=== PATIENT | female | born 1965 | race Caucasian/White ===

== ENCOUNTER 2017-11-23 13:16 | Inpatient (IN) | payer MEDICAID ==
[~2017-11-23] VITALS: Ht 165.1 cm; Wt 82.5 kg
[~2017-11-23 13:16] MED LIST: ASPI-496 PO; ASPI-624; BUDE10.2 INH; CALC200T3 PO; CEFD300C37 PO; DILT180C53 PO; DOXY100T PO; ESOM20CA PO; FERR325T18 PO; FLUT1DIS3 INH; FURO-93 PO; HYDR1TAB12 PO; IPRA3AMP INH; LASIX PO; LEVO500T47 PO; LISI5TAB7 PO; LORA1TAB PO; MAGNESIUM PO; METH-356 PO; METH4TAB2 PO; METHADONE PO; METO25TA35 PO; NYST1000 PO; OMEP20TA62 PO; POTA20TA14 PO; POTASSIUM PO; PRED10TA PO; PRED10TA14 PO; SERT50TA PO; TIOT18CA INH
[2017-11-23] MEDS ORDERED: SODIUM CHLORIDE FLUSH 10ML SYR IVF ONE (13:30)
[2017-11-23] MEDS ORDERED: ALBUTEROL/IPRATROPIUM 2.5MG/0.5MG, 3 ML ONE ×2 (13:53→14:02)
[2017-11-23 14:00] LABS: MEAN CORPUSCULAR HEMOGLOBIN 26.6 pg (27.0-34.8); MEAN CORPUSCULAR HGB CONC 32.3 g/dL (32.4-35.8); MEAN CORPUSCULAR VOLUME 82.4 fL (80-100); MEAN PLATELET VOLUME 7.4 fL (7.4-10.4); PLATELET COUNT 276 x10^3/uL (130-400); RED BLOOD COUNT 4.47 x10^6/uL (3.82-5.3); RED CELL DISTRIBUTION WIDTH 15.9 % (9.6-15.2)
[2017-11-23] MEDS: ALBUTEROL/IPRATROPIUM 2.5MG/0.5MG, 3 ML NPPB SCH ×3 (14:00→22:31)
[2017-11-23] MEDS ORDERED: SODIUM CHLORIDE 0.9% 1,000ML IVBOLUS ONE (14:00)
[2017-11-23] MEDS ORDERED: methylPREDNISolone SOD SUCC 125 MG/2 ML IVP ONE (14:00)
[2017-11-23 14:13] LABS: ALBUMIN 3.3 g/dL (3.4-5.0); ANION GAP 11 mmol/L (5-15); CHLORIDE 97 mmol/L (98-107)
[2017-11-23 14:19] LABS: ALANINE AMINOTRANSFERASE 32 U/L (12-78); ALKALINE PHOSPHATASE 86 U/L (45-117); BILIRUBIN,TOTAL 0.8 mg/dL (0.2-1.0); CREATININE 0.84 mg/dL (0.55-1.02); TOTAL PROTEIN 7.2 g/dL (6.4-8.2); TROPONIN I 0.053 ng/mL (0.000-0.045)
[2017-11-23] MEDS ORDERED: CEFTRIAXONE PMX 1GM/50ML 50 ML IV ONE (14:30)
[2017-11-23] MEDS ORDERED: AZITHROMYCIN 500 MG in SODIUM CHLORIDE 0.9% 250 ML IV ONE (14:30)
[2017-11-23 15:00] LABS: MD YES
[2017-11-23 15:01] LABS: BAND#(MANUAL) 0.68 x10^3/uL; BANDS%(MANUAL) 5 % (0-7); MONOS#(MANUAL) 0.27 x10^3/uL (0.3-2.7); MONOS% (MANUAL) 2 % (2-9)
[2017-11-23 15:02] LABS: LYMPH#(MANUAL) 0.14 x10^3/uL (1-3.4); LYMPHS% (MANUAL) 1 % (22-44); SEGS% (MANUAL) 92 % (42-75)
[2017-11-23 15:03] LABS: <PLATELET ESTIMATE> ADEQUATE; <PLT MORPHOLOGY> NORMAL PLT MORPH; ANISOCYTOSIS 1+; MICROCYTOSIS 1+
[2017-11-23 15:04] LABS: HYPOCHROMIA 1+; POLYCHROMASIA 1+
[2017-11-23] MEDS ORDERED: METHADONE PO (15:05)
[2017-11-23] MEDS ORDERED: LABETALOL 5MG/ML, 20ML IVPush PRN (15:30)
[2017-11-23] MEDS ORDERED: POLYETHYLENE GLYCOL 17 GM PACKET PO PRN (15:30)
[2017-11-23] MEDS ORDERED: hydrALAzine 20 MG/ML, 1ML IVPush PRN (15:30)
[2017-11-23] MEDS ORDERED: GUAIFENESIN/DM 200-20MG, 10ML UDC PO PRN (15:30)
[2017-11-23] MEDS ORDERED: CEFTRIAXONE PMX 1GM/50ML 50 ML ONE (15:34)
[2017-11-23] MEDS ORDERED: methylPREDNISolone SOD SUCC 125 MG/2 ML ONE (15:35)
[2017-11-23] MEDS ORDERED: OMNIPAQUE 350 MG/ML, 100ML BOTTLE ONE (16:45)
[2017-11-23] MEDS: AZITHROMYCIN 500 MG in SODIUM CHLORIDE 0.9% 250 ML IV SCH ×2 (17:20→23:39)
[2017-11-23 17:29] VITALS: BP 118/69
[2017-11-23 17:33] VITALS: BP 118/69
[2017-11-23] MEDS ORDERED: CEFTRIAXONE PMX 1GM/50ML 50 ML IV SCH (18:00)
[2017-11-23 18:53] LABS: MICROSCOPIC NOT IND
[2017-11-23 18:55] LABS: CULTURE INDICATED? NO
[2017-11-23 20:07] LABS: HCT (SEDRATE) 36.8 % (34.6-47.8)
[2017-11-23 20:16] VITALS: BP 123/81
[2017-11-23 21:21] LABS: TROPONIN I 0.048 ng/mL (0.000-0.045)
[2017-11-23] MEDS: SODIUM CHLORIDE 0.9% 1,000 ML IV SCH (21:53)
[2017-11-23] MEDS: ENOXAPARIN 40 MG/0.4 ML SQ SCH (21:54)
[2017-11-23] MEDS: methylPREDNISolone SOD SUCC 125 MG/2 ML IVPush SCH (21:54)
[2017-11-24 01:05] LABS: RAPID INFLUENZA A Negative (Negative); RAPID INFLUENZA B Negative (Negative)
[2017-11-24 02:04] VITALS: BP 132/73
[2017-11-24] MEDS: methylPREDNISolone SOD SUCC 125 MG/2 ML IVPush SCH ×2 (05:58→20:32)
[2017-11-24 06:38] LABS: BASOPHILS # (AUTO) 0.06 x10^3/uL (0-0.1); BASOPHILS % (AUTO) 2 % (0-1); EOSINOPHILS % (AUTO) 0 % (1-7); LYMPHOCYTES # (AUTO) 0.31 x10^3/uL (1-3.4); LYMPHOCYTES % (AUTO) 7 % (22-44); MD NO; MEAN CORPUSCULAR HEMOGLOBIN 26.9 pg (27.0-34.8); MEAN CORPUSCULAR HGB CONC 32.7 g/dL (32.4-35.8); MEAN CORPUSCULAR VOLUME 82.3 fL (80-100); MONOCYTES # (AUTO) 0.19 x10^3/uL (0.2-0.8); MONOCYTES % (AUTO) 4 % (2-9); NEUTROPHILS # (AUTO) 3.64 x10^3/uL (1.8-6.8); NEUTROPHILS % (AUTO) 87 % (42-75); PLATELET COUNT 179 x10^3/uL (130-400); RED BLOOD COUNT 3.44 x10^6/uL (3.82-5.3)
[2017-11-24] MEDS: ALBUTEROL/IPRATROPIUM 2.5MG/0.5MG, 3 ML NPPB SCH ×5 (07:00→22:00)
[2017-11-24 07:48] LABS: ANION GAP 9 mmol/L (5-15); CALCIUM 8.2 mg/dL (8.5-10.1); CHLORIDE 103 mmol/L (98-107)
[2017-11-24 07:50] LABS: CREATININE 0.49 mg/dL (0.55-1.02)
[2017-11-24 08:36] VITALS: BP 144/95
[2017-11-24] MEDS: SENNA/DOCUSATE TABLET PO SCH (09:24)
[2017-11-24] MEDS: DILTIAZEM CD 180 MG CAP.ER.24H PO SCH (09:24)
[2017-11-24] MEDS: METHADONE 10 MG TABLET PO SCH (09:25)
[2017-11-24] MEDS: ASPIRIN 81 MG TABLET EC PO SCH (09:25)
[2017-11-24 09:41] LABS: RED BLOOD COUNT 3.41 x10^6/uL (3.82-5.3)
[2017-11-24 09:43] LABS: ABSOLUTE RETICS # 0.117 x10^6/uL (0.5-2.5); RETICULOCYTE COUNT % 3.41 % (0.5-1.5)
[2017-11-24] MEDS ORDERED: TRAZ100T15 PO (11:36)
[2017-11-24] MEDS ORDERED: VENL225T PO (11:36)
[2017-11-24] MEDS ORDERED: ESOM40CA PO (11:36)
[2017-11-24] MEDS ORDERED: BUSP30TA PO (11:36)
[2017-11-24] MEDS: SODIUM CHLORIDE 0.9% 1,000 ML IV SCH ×2 (11:51→20:27)
[2017-11-24 14:46] VITALS: BP 162/100
[2017-11-24] MEDS: BUSPIRONE 10 MG TABLET PO SCH (15:15)
[2017-11-24] MEDS: VENLAFAXINE 75 MG CAP ER PO SCH (16:30)
[2017-11-24] MEDS: LORazepam 1MG TABLET PO SCH ×2 (16:38→20:27)
[2017-11-24] MEDS: ENOXAPARIN 40 MG/0.4 ML SQ SCH (20:26)
[2017-11-24] MEDS: TRAZODONE 100MG TABLET PO SCH (20:27)
[2017-11-24 20:34] VITALS: BP 120/64
[2017-11-24] MEDS ORDERED: BUSPIRONE 10 MG TABLET PO SCH (21:00)
[2017-11-24] MEDS: FLUTICASONE/VILANTEROL 200-25MCG/INH INH SCH (21:31)
[2017-11-24] MEDS: CEFTRIAXONE 1,000 MG in SODIUM CHLORIDE 0.9% 50 ML IV SCH (21:31)
[2017-11-24] MEDS: AZITHROMYCIN 500 MG in SODIUM CHLORIDE 0.9% 250 ML IV SCH (23:22)
[2017-11-25 02:07] VITALS: BP 119/75
[2017-11-25] MEDS: methylPREDNISolone SOD SUCC 125 MG/2 ML IVPush SCH ×3 (05:07→20:38)
[2017-11-25 05:27] LABS: BASOPHILS % (AUTO) 0 % (0-1); EOSINOPHILS % (AUTO) 0 % (1-7); LYMPHOCYTES # (AUTO) 0.22 x10^3/uL (1-3.4); LYMPHOCYTES % (AUTO) 6 % (22-44); MD NO; MEAN CORPUSCULAR HEMOGLOBIN 26.7 pg (27.0-34.8); MEAN CORPUSCULAR HGB CONC 32.1 g/dL (32.4-35.8); MEAN CORPUSCULAR VOLUME 83.1 fL (80-100); MEAN PLATELET VOLUME 7.9 fL (7.4-10.4); MONOCYTES # (AUTO) 0.12 x10^3/uL (0.2-0.8); MONOCYTES % (AUTO) 3 % (2-9); NEUTROPHILS # (AUTO) 3.46 x10^3/uL (1.8-6.8); NEUTROPHILS % (AUTO) 91 % (42-75); PLATELET COUNT 199 x10^3/uL (130-400); RED BLOOD COUNT 3.67 x10^6/uL (3.82-5.3); RED CELL DISTRIBUTION WIDTH 16.6 % (9.6-15.2)
[2017-11-25 05:37] LABS: ALBUMIN 2.5 g/dL (3.4-5.0); ANION GAP 9 mmol/L (5-15); CALCIUM 7.9 mg/dL (8.5-10.1); CHLORIDE 107 mmol/L (98-107); CREATININE 0.66 mg/dL (0.55-1.02)
[2017-11-25] MEDS ORDERED: PANTOPROZOLE 40MG TABLET PO SCH (07:30)
[2017-11-25] MEDS: ALBUTEROL/IPRATROPIUM 2.5MG/0.5MG, 3 ML NPPB SCH ×5 (08:23→21:52)
[2017-11-25] MEDS: FLUTICASONE/VILANTEROL 200-25MCG/INH INH SCH (08:45)
[2017-11-25] MEDS: METHADONE 10 MG TABLET PO SCH (08:46)
[2017-11-25] MEDS: VENLAFAXINE 75 MG CAP ER PO SCH (08:46)
[2017-11-25] MEDS: DILTIAZEM CD 180 MG CAP.ER.24H PO SCH (08:46)
[2017-11-25] MEDS: BUSPIRONE 10 MG TABLET PO SCH ×2 (08:46→20:38)
[2017-11-25] MEDS: SENNA/DOCUSATE TABLET PO SCH (08:46)
[2017-11-25] MEDS: FUROSEMIDE 20 MG TABLET PO SCH (08:47)
[2017-11-25] MEDS: ASPIRIN 81 MG TABLET EC PO SCH (08:47)
[2017-11-25] MEDS: POTASSIUM CHLORIDE 20 MEQ TAB.ER.PRT PO SCH (08:47)
[2017-11-25] MEDS ORDERED: VENLAFAXINE 75 MG CAP ER PO SCH (09:00)
[2017-11-25 13:06] VITALS: BP 145/84
[2017-11-25] MEDS: SODIUM CHLORIDE 0.9% 1,000 ML IV SCH (15:39)
[2017-11-25] MEDS: PANTOPROZOLE 40MG TABLET PO SCH (17:08)
[2017-11-25] MEDS ORDERED: LORazepam 1MG TABLET PO PRN (18:30)
[2017-11-25 20:12] VITALS: BP 150/87
[2017-11-25] MEDS: TRAZODONE 100MG TABLET PO SCH (20:38)
[2017-11-25] MEDS: ENOXAPARIN 40 MG/0.4 ML SQ SCH (20:38)
[2017-11-25] MEDS: CEFTRIAXONE 1,000 MG in SODIUM CHLORIDE 0.9% 50 ML IV SCH (22:00)
[2017-11-25] MEDS: AZITHROMYCIN 500 MG in SODIUM CHLORIDE 0.9% 250 ML IV SCH (23:06)
[2017-11-26 04:22] VITALS: BP 166/96
[2017-11-26] MEDS: methylPREDNISolone SOD SUCC 125 MG/2 ML IVPush SCH (04:33)
[2017-11-26] MEDS: ALBUTEROL/IPRATROPIUM 2.5MG/0.5MG, 3 ML NPPB SCH (06:55)
[2017-11-26 08:15] VITALS: BP 187/106
[2017-11-26] MEDS: FLUTICASONE/VILANTEROL 200-25MCG/INH INH SCH (09:27)
[2017-11-26] MEDS: VENLAFAXINE 75 MG CAP ER PO SCH (09:28)
[2017-11-26] MEDS: BUSPIRONE 10 MG TABLET PO SCH (09:28)
[2017-11-26] MEDS: DILTIAZEM CD 180 MG CAP.ER.24H PO SCH (09:29)
[2017-11-26] MEDS: METHADONE 10 MG TABLET PO SCH (09:29)
[2017-11-26] MEDS: POTASSIUM CHLORIDE 20 MEQ TAB.ER.PRT PO SCH (09:29)
[2017-11-26] MEDS: SENNA/DOCUSATE TABLET PO SCH (09:30)
[2017-11-26] MEDS: FUROSEMIDE 20 MG TABLET PO SCH (09:30)
[2017-11-26] MEDS: PANTOPROZOLE 40MG TABLET PO SCH (09:42)
[2017-11-26] MEDS: ASPIRIN 81 MG TABLET EC PO SCH (09:47)
[2017-11-26] MEDS ORDERED: FLUT1BLS INH (10:43)
[2017-11-26] MEDS ORDERED: METH4TAB2 PO (10:43)
[2017-11-26] MEDS ORDERED: DOXY100C26 PO (10:43)
== END 2017-11-26 12:03 | disposition home or self-care (01) | DRG 193 ==
LOC: ED 14:37 → EDIP 14:38 → INTOOBSV 14:38 → ED 15:00 → 4WST 16:41 → OBSVTOIN 11-24 09:11
PROVIDERS: ADMIT Hospitalist; ATTEND Hospitalist
PROC: 02HV33Z Insertion of Infusion Device into Superior Vena Cava, Percutaneous Approach (ICD-10-PCS; principal; 2017-11-24)
PROC: B548ZZA Ultrasonography of Superior Vena Cava, Guidance (ICD-10-PCS; 2017-11-24)
DX: J18.9 Pneumonia, unspecified organism (principal); J96.21 Acute and chronic respiratory failure with hypoxia; I24.8 Other forms of acute ischemic heart disease; I13.0 Hypertensive heart and chronic kidney disease with heart failure and stage 1 through stage 4 chronic kidney disease, or unspecified chronic kidney disease; I50.9 Heart failure, unspecified; F11.20 Opioid dependence, uncomplicated; I48.0 Paroxysmal atrial fibrillation; J44.0 Chronic obstructive pulmonary disease with (acute) lower respiratory infection; J44.1 Chronic obstructive pulmonary disease with (acute) exacerbation; D50.9 Iron deficiency anemia, unspecified; Z99.81 Dependence on supplemental oxygen; D86.9 Sarcoidosis, unspecified; D63.8 Anemia in other chronic diseases classified elsewhere; F41.9 Anxiety disorder, unspecified; G47.00 Insomnia, unspecified; N18.9 Chronic kidney disease, unspecified; R32 Unspecified urinary incontinence; Z23 Encounter for immunization; Z87.891 Personal history of nicotine dependence; Z91.14 Patient's other noncompliance with medication regimen; Z91.19 Patient's noncompliance with other medical treatment and regimen; Z79.899 Other long term (current) drug therapy
CPT/HCPCS: 36415; 36569; 71045; 71250; 71275; 76937; 77001; 80048; 80053; 81003; 82040; 82164; 82652; 82728; 83540; 83550; 83605; 83735; 83880; 84484; 85025; 85045; 85651; 86140; 87040; 87400; 93005; 94640; 96374; 96375; G0378; J0456; J0696; J1650; J7620; Q9967; C1751; J2930; J7030; J7050

== ENCOUNTER 2017-12-16 15:49 | Inpatient (IN) | payer MEDICAID ==
[~2017-12-16] VITALS: Ht 165.1 cm; Wt 89.0 kg
[~2017-12-16 15:49] MED LIST changes: +BUSP30TA PO; +DOXY100C26 PO; +ESOM40CA PO; +FLUT1BLS INH; +TRAZ100T15 PO; +VENL225T PO
[2017-12-16] MEDS ORDERED: SODIUM CHLORIDE FLUSH 10ML SYR IVF ONE (16:30)
[2017-12-16] MEDS ORDERED: SODIUM CHLORIDE 0.9% 1,000ML IVBOLUS ONE (16:30)
[2017-12-16 17:06] LABS: ALBUMIN 2.9 g/dL (3.4-5.0); ANION GAP 8 mmol/L (5-15); CALCIUM 9.8 mg/dL (8.5-10.1); CHLORIDE 96 mmol/L (98-107)
[2017-12-16 17:09] LABS: MEAN CORPUSCULAR HGB CONC 32.2 g/dL (32.4-35.8); MEAN CORPUSCULAR VOLUME 80.8 fL (80-100); MEAN PLATELET VOLUME 8.4 fL (7.4-10.4); PLATELET COUNT 308 x10^3/uL (130-400); RED BLOOD COUNT 2.41 x10^6/uL (3.82-5.3); RED CELL DISTRIBUTION WIDTH 20.1 % (9.6-15.2)
[2017-12-16 17:11] LABS: CREATININE 0.82 mg/dL (0.55-1.02); TROPONIN I 0.738 ng/mL (0.000-0.045)
[2017-12-16] MEDS ORDERED: HYDROmorphone 2 MG/ML, 1ML ONE ×2 (17:24→18:49)
[2017-12-16] MEDS ORDERED: ONDANSETRON 2MG/ML, 2ML ONE (17:24)
[2017-12-16] MEDS: HYDROmorphone 2 MG/ML, 1ML IVPush PRN ×2 (17:36→18:58)
[2017-12-16 17:47] LABS: MD YES
[2017-12-16 17:49] LABS: ANISOCYTOSIS 1+; EOS#(MANUAL) 0.08 x10^3/uL (0.0-0.4); EOS% (MANUAL) 1 % (1-7); LYMPHS% (MANUAL) 19 % (22-44); MONOS#(MANUAL) 0.55 x10^3/uL (0.3-2.7); MONOS% (MANUAL) 7 % (2-9); NRBC % (MANUAL) 2 % (0-1); SEG#(MANUAL) 5.77 x10^3/uL (1.8-6.8); SEGS% (MANUAL) 73 % (42-75)
[2017-12-16 17:50] LABS: OVALOCYTES 1+; POLYCHROMASIA 1+
[2017-12-16 17:51] LABS: HYPOCHROMIA 1+
[2017-12-16 17:52] LABS: <PLATELET ESTIMATE> ADEQUATE
[2017-12-16 17:53] LABS: <PLT MORPHOLOGY> NORMAL PLT MORPH
[2017-12-16] MEDS ORDERED: ONDANSETRON 2MG/ML, 2ML IVPush ONE (18:00)
[2017-12-16] MEDS ORDERED: POTASSIUM CHLORIDE 40 MEQ in SODIUM CHLORIDE 0.9% 500 ML IV ONE ×2 (18:00→21:30)
[2017-12-16] MEDS ORDERED: ETOMIDATE 20 MG/10 ML IVPush ONE (18:30)
[2017-12-16] MEDS ORDERED: ETOMIDATE 20 MG/10 ML ONE (19:29)
[2017-12-16] MEDS ORDERED: MIDAZOLAM 1 MG/ML, 2ML ONE (19:35)
[2017-12-16] MEDS ORDERED: FENTANYL PF 100 MCG/2ML ONE (19:42)
[2017-12-16 19:56] VITALS: BP 111/73
[2017-12-16] MEDS ORDERED: FENTANYL PF 100 MCG/2ML IV PRN (20:00)
[2017-12-16 20:19] VITALS: BP 106/77
[2017-12-16] MEDS ORDERED: TRAZ100T15 PO (20:19)
[2017-12-16] MEDS ORDERED: BUDE10.2 INH (20:19)
[2017-12-16 20:59] VITALS: BP 105/58
[2017-12-16] MEDS ORDERED: SODIUM CHLORIDE 0.9% 1,000 ML IV SCH (20:59)
[2017-12-16] MEDS ORDERED: ENALAPRILAT 1.25 MG/ML, 2ML IVPush PRN (21:00)
[2017-12-16] MEDS ORDERED: BISACODYL 10 MG SUPP PR PRN (21:00)
[2017-12-16] MEDS ORDERED: hydrALAzine 20 MG/ML, 1ML IVPush PRN (21:00)
[2017-12-16] MEDS ORDERED: ACETAMINOPHEN 325 MG TABLET PO PRN (21:00)
[2017-12-16] MEDS ORDERED: POLYETHYLENE GLYCOL 17 GM PACKET PO PRN (21:00)
[2017-12-16] MEDS ORDERED: ONDANSETRON 2MG/ML, 2ML IVPush PRN (21:00)
[2017-12-16] MEDS ORDERED: DOCUSATE 100 MG CAPSULE PO PRN (21:00)
[2017-12-16] MEDS ORDERED: ALBUTEROL/IPRATROPIUM 2.5MG/0.5MG, 3 ML NEB PRN (21:30)
[2017-12-16] MEDS ORDERED: POTASSIUM CHLORIDE 20 MEQ TAB.ER.PRT PO ONE (21:30)
[2017-12-16 21:34] LABS: FREE T4 (FREE THYROXINE) 1.18 ng/dL (0.76-1.46); THYROID STIMULATING HORMONE 0.762 mIU/L (0.358-3.740)
[2017-12-16 21:47] VITALS: BP 122/77
[2017-12-16] MEDS: morphine SULFATE 10 MG/ML, 1ML IVPush PRN (21:59)
[2017-12-16] MEDS: PANTOPRAZOLE 40 MG IV IVPush SCH (22:09)
[2017-12-16] MEDS: TRAZODONE 100MG TABLET PO SCH (22:15)
[2017-12-16 22:48] VITALS: BP 114/76
[2017-12-17] VITALS (15 sets, daily range): BP systolic 84–120; BP diastolic 53–75
[2017-12-17 00:31] LABS: TROPONIN I 0.615 ng/mL (0.000-0.045)
[2017-12-17 01:03] LABS: HEMOGLOBIN A1C 5.1 % (4.2-6.3)
[2017-12-17 01:56] LABS: CULTURE INDICATED? YES; MICROSCOPIC INDICATED
[2017-12-17] MEDS: morphine SULFATE 10 MG/ML, 1ML IVPush PRN ×6 (06:05→23:03)
[2017-12-17 06:32] LABS: MEAN CORPUSCULAR HEMOGLOBIN 26.9 pg (27.0-34.8); MEAN CORPUSCULAR VOLUME 84.2 fL (80-100); MEAN PLATELET VOLUME 8.5 fL (7.4-10.4); PLATELET COUNT 214 x10^3/uL (130-400); RED BLOOD COUNT 3.03 x10^6/uL (3.82-5.3); RED CELL DISTRIBUTION WIDTH 18.4 % (9.6-15.2)
[2017-12-17 06:42] LABS: ALANINE AMINOTRANSFERASE 17 U/L (12-78); ALBUMIN 2.3 g/dL (3.4-5.0); ANION GAP 7 mmol/L (5-15); CALCIUM 8.1 mg/dL (8.5-10.1); CHLORIDE 111 mmol/L (98-107)
[2017-12-17 06:45] LABS: ALKALINE PHOSPHATASE 76 U/L (45-117); BILIRUBIN,TOTAL 0.5 mg/dL (0.2-1.0); CHOL/HDL RATIO 3.7; CHOLESTEROL, TOTAL 169 mg/dL (140-239); CREATININE 0.73 mg/dL (0.55-1.02); HDL CHOL % 27 % (28-40); HDL CHOLESTEROL (DIRECT) 46 mg/dL (40-60); LDL CHOLESTEROL,CALCULATED 67 mg/dL (54-169); LDL/HDL RATIO 1.5 (0.5-3.0); TOTAL PROTEIN 4.9 g/dL (6.4-8.2); TRIGLYCERIDES 280 mg/dL (50-200); TROPONIN I 0.506 ng/mL (0.000-0.045); VLDL CHOLESTEROL 56 mg/dL (0-25)
[2017-12-17 07:14] LABS: BASOPHILS # (AUTO) 0.01 x10^3/uL (0-0.1); BASOPHILS % (AUTO) 0 % (0-1); EOSINOPHILS # (AUTO) 0.06 x10^3/uL (0-0.4); EOSINOPHILS % (AUTO) 1 % (1-7); LYMPHOCYTES # (AUTO) 0.63 x10^3/uL (1-3.4); LYMPHOCYTES % (AUTO) 12 % (22-44); MD SCAN; MONOCYTES % (AUTO) 6 % (2-9); NEUTROPHILS # (AUTO) 4.31 x10^3/uL (1.8-6.8); NEUTROPHILS % (AUTO) 81 % (42-75)
[2017-12-17] MEDS: IPRATROPIUM 0.5 MG/2.5 ML INHA NPPB SCH ×5 (07:23→19:35)
[2017-12-17] MEDS ORDERED: METHADONE 10 MG TABLET PO SCH (09:00)
[2017-12-17] MEDS ORDERED: TEMPLATE NON-FORMULARY MED. (Budesonide/Formoterol Fumarate (Symbicort 160-4.5 Mcg Inhaler INH SCH (09:00)
[2017-12-17] MEDS: DILTIAZEM CD 180 MG CAP.ER.24H PO SCH (09:13)
[2017-12-17] MEDS: BUSPIRONE 10 MG TABLET PO SCH (09:14)
[2017-12-17] MEDS: METHADONE 10 MG TABLET PO SCH (09:14)
[2017-12-17] MEDS: PANTOPRAZOLE 40 MG IV IVPush SCH ×2 (09:14→19:45)
[2017-12-17] MEDS: VENLAFAXINE 75 MG CAP ER PO SCH (09:14)
[2017-12-17] MEDS: FLUTICASONE/VILANTEROL 200-25MCG/INH INH SCH (13:12)
[2017-12-17] MEDS: CEFTRIAXONE PMX 2GM/50ML 50 ML IV SCH (15:38)
[2017-12-17] MEDS: DOXYCYCLINE 100 MG in DEXTROSE 5% 250 ML IV SCH (16:37)
[2017-12-17] MEDS: TRAZODONE 100MG TABLET PO SCH (19:45)
[2017-12-18] VITALS (9 sets, daily range): BP systolic 98–120; BP diastolic 62–80
[2017-12-18] MEDS: morphine SULFATE 10 MG/ML, 1ML IVPush PRN ×5 (02:11→21:04)
[2017-12-18 04:56] LABS: BASOPHILS # (AUTO) 0.04 x10^3/uL (0-0.1); BASOPHILS % (AUTO) 1 % (0-1); EOSINOPHILS # (AUTO) 0.08 x10^3/uL (0-0.4); EOSINOPHILS % (AUTO) 2 % (1-7); LYMPHOCYTES # (AUTO) 0.82 x10^3/uL (1-3.4); LYMPHOCYTES % (AUTO) 19 % (22-44); MD NO; MEAN CORPUSCULAR HEMOGLOBIN 27.6 pg (27.0-34.8); MEAN CORPUSCULAR HGB CONC 32.9 g/dL (32.4-35.8); MEAN CORPUSCULAR VOLUME 83.9 fL (80-100); MEAN PLATELET VOLUME 8.4 fL (7.4-10.4); MONOCYTES # (AUTO) 0.47 x10^3/uL (0.2-0.8); MONOCYTES % (AUTO) 11 % (2-9); NEUTROPHILS # (AUTO) 2.94 x10^3/uL (1.8-6.8); NEUTROPHILS % (AUTO) 68 % (42-75); PLATELET COUNT 196 x10^3/uL (130-400); RED BLOOD COUNT 3.17 x10^6/uL (3.82-5.3)
[2017-12-18] MEDS: DOXYCYCLINE 100 MG in DEXTROSE 5% 250 ML IV SCH ×2 (05:03→23:33)
[2017-12-18 05:08] LABS: % IRON SATURATION 4 % (20-55); ANION GAP 7 mmol/L (5-15); CALCIUM 7.6 mg/dL (8.5-10.1); CHLORIDE 110 mmol/L (98-107); CREATININE 0.58 mg/dL (0.55-1.02); IRON LEVEL 9 mcg/dL (50-170); TOTAL IRON BINDING CAPACITY 224 mcg/dL (250-450)
[2017-12-18] MEDS: IPRATROPIUM 0.5 MG/2.5 ML INHA NPPB SCH ×4 (07:45→19:50)
[2017-12-18] MEDS ORDERED: EPINEPHRINE 1 MG/ML, 1ML ONE (08:28)
[2017-12-18] MEDS ORDERED: BUPIVACAINE/PF 0.5% ONE (08:28)
[2017-12-18] MEDS ORDERED: IRON DEXTRAN IV PER PHARMACY IV PRN (08:30)
[2017-12-18] MEDS: FLUTICASONE/VILANTEROL 200-25MCG/INH INH SCH (08:34)
[2017-12-18] MEDS ORDERED: FENTANYL PF 250 MCG/5ML ONE (08:49)
[2017-12-18] MEDS ORDERED: MIDAZOLAM 1 MG/ML, 2ML ONE (08:49)
[2017-12-18] MEDS ORDERED: IRON DEXTRAN COMPLEX 25 MG in SODIUM CHLORIDE 0.9% 50 ML IV ONE (09:00)
[2017-12-18] MEDS ORDERED: SUCCINYLCHOLINE 20 MG/ML, 10ML ONE (09:27)
[2017-12-18] MEDS ORDERED: CEFAZOLIN 1,000 MG ONE (09:27)
[2017-12-18] MEDS ORDERED: DEXAMETHASONE 4 MG/ML, 1ML ONE (09:27)
[2017-12-18] MEDS ORDERED: PROPOFOL 10 MG/ML, 20ML ONE (09:27)
[2017-12-18] MEDS ORDERED: ROCURONIUM 10 MG/ML,10ML ONE (09:27)
[2017-12-18] MEDS ORDERED: ONDANSETRON 2MG/ML, 2ML ONE (09:27)
[2017-12-18] MEDS ORDERED: hydrALAzine 20 MG/ML, 1ML IV PRN (10:30)
[2017-12-18] MEDS ORDERED: OXYcodone 5 MG/5 ML ORAL.SOL UDC PO PRN (10:30)
[2017-12-18] MEDS ORDERED: ONDANSETRON 2MG/ML, 2ML IVPush PRN (10:30)
[2017-12-18] MEDS ORDERED: HYDROmorphone 1 MG/ML, 1ML IV PRN (10:30)
[2017-12-18] MEDS ORDERED: FENTANYL PF 100 MCG/2ML IV PRN (10:30)
[2017-12-18] MEDS ORDERED: LABETALOL 5MG/ML, 20ML IV PRN (10:30)
[2017-12-18] MEDS ORDERED: ACETAMINOPHEN 325 MG TABLET PO PRN (10:30)
[2017-12-18] MEDS ORDERED: METOCLOPRAMIDE 5 MG/ML, 2ML IV PRN (10:30)
[2017-12-18] MEDS ORDERED: NEOSPORIN OINT, 15GM ONE (10:41)
[2017-12-18] MEDS ORDERED: IRON DEXTRAN COMPLEX IV ONE (11:00)
[2017-12-18] MEDS ORDERED: SODIUM CHLORIDE 0.9% IV ONE (11:00)
[2017-12-18] MEDS: PANTOPROZOLE 40MG TABLET PO SCH ×2 (12:02→20:34)
[2017-12-18] MEDS: DILTIAZEM CD 180 MG CAP.ER.24H PO SCH (12:03)
[2017-12-18] MEDS: BUSPIRONE 10 MG TABLET PO SCH (12:03)
[2017-12-18] MEDS: METHADONE 10 MG TABLET PO SCH (12:03)
[2017-12-18] MEDS: VENLAFAXINE 75 MG CAP ER PO SCH (12:03)
[2017-12-18] MEDS: CEFAZOLIN PMX 1GM/50ML 50 ML IV SCH ×2 (12:21→21:48)
[2017-12-18] MEDS ORDERED: METHADONE 10 MG TABLET PO ONE (13:00)
[2017-12-18] MEDS: TRAZODONE 100MG TABLET PO SCH (20:34)
[2017-12-18] MEDS: OXYcodone IR 5MG TABLET PO PRN (20:34)
[2017-12-18] MEDS: CEFTRIAXONE PMX 2GM/50ML 50 ML IV SCH (22:45)
[2017-12-18] MEDS: HYDROmorphone 2 MG/ML, 1ML IVPush PRN ×2 (22:57→23:33)
[2017-12-19] VITALS (11 sets, daily range): BP systolic 92–120; BP diastolic 59–78
[2017-12-19] MEDS: HYDROmorphone 2 MG/ML, 1ML IVPush PRN ×3 (00:02→07:22)
[2017-12-19] MEDS: OXYcodone IR 5MG TABLET PO PRN ×5 (00:46→23:37)
[2017-12-19] MEDS: ALBUTEROL/IPRATROPIUM 2.5MG/0.5MG, 3 ML NPPB SCH ×4 (08:25→19:03)
[2017-12-19] MEDS: FLUTICASONE/VILANTEROL 200-25MCG/INH INH SCH (08:31)
[2017-12-19] MEDS: DOXYCYCLINE 100 MG in DEXTROSE 5% 250 ML IV SCH (09:36)
[2017-12-19] MEDS: METHADONE INTENSOL 10 MG/ML ORAL CONC PO SCH (10:30)
[2017-12-19] MEDS ORDERED: KETAMINE 10 MG/ML, 20ML ONE (10:43)
[2017-12-19] MEDS ORDERED: PROPOFOL 10 MG/ML, 50ML ONE (11:00)
[2017-12-19] MEDS ORDERED: PROPOFOL 10 MG/ML, 20ML ONE (11:00)
[2017-12-19] MEDS ORDERED: HYDROmorphone 1 MG/ML, 1ML IV PRN (11:30)
[2017-12-19] MEDS ORDERED: ONDANSETRON 2MG/ML, 2ML IVPush PRN (11:30)
[2017-12-19] MEDS ORDERED: FENTANYL PF 100 MCG/2ML IV PRN (11:30)
[2017-12-19] MEDS ORDERED: MIDAZOLAM 1 MG/ML, 2ML IV PRN (11:30)
[2017-12-19] MEDS ORDERED: OXYcodone 5 MG/5 ML ORAL.SOL UDC PO PRN (11:30)
[2017-12-19] MEDS ORDERED: LORazepam 2 MG/ML, 1ML IVPush PRN (11:30)
[2017-12-19] MEDS ORDERED: METHADONE 10 MG TABLET ONE ×2 (11:37→11:43)
[2017-12-19] MEDS: VENLAFAXINE 75 MG CAP ER PO SCH (12:06)
[2017-12-19] MEDS: DILTIAZEM CD 180 MG CAP.ER.24H PO SCH (12:06)
[2017-12-19] MEDS: BUSPIRONE 10 MG TABLET PO SCH (12:06)
[2017-12-19] MEDS: PANTOPROZOLE 40MG TABLET PO SCH (15:57)
[2017-12-19] MEDS: SUCRALFATE 1 GM/10 ML UDC PO SCH ×2 (15:57→19:46)
[2017-12-19] MEDS: CEFTRIAXONE PMX 2GM/50ML 50 ML IV SCH (19:46)
[2017-12-19] MEDS: TRAZODONE 100MG TABLET PO SCH (19:46)
[2017-12-19] MEDS: LORazepam 1MG TABLET PO PRN (19:46)
[2017-12-20 02:00] VITALS: BP 100/65
[2017-12-20] MEDS: LORazepam 1MG TABLET PO PRN (03:04)
[2017-12-20] MEDS: DOXYCYCLINE 100 MG in DEXTROSE 5% 250 ML IV SCH ×2 (03:39→16:07)
[2017-12-20] MEDS: OXYcodone IR 5MG TABLET PO PRN ×4 (03:39→20:17)
[2017-12-20 05:22] LABS: BASOPHILS % (AUTO) 0 % (0-1); EOSINOPHILS # (AUTO) 0.02 x10^3/uL (0-0.4); EOSINOPHILS % (AUTO) 0 % (1-7); LYMPHOCYTES # (AUTO) 0.71 x10^3/uL (1-3.4); LYMPHOCYTES % (AUTO) 10 % (22-44); MD NO; MEAN CORPUSCULAR HEMOGLOBIN 27.4 pg (27.0-34.8); MEAN CORPUSCULAR HGB CONC 32.9 g/dL (32.4-35.8); MEAN CORPUSCULAR VOLUME 83.3 fL (80-100); MEAN PLATELET VOLUME 8.4 fL (7.4-10.4); MONOCYTES # (AUTO) 0.66 x10^3/uL (0.2-0.8); MONOCYTES % (AUTO) 9 % (2-9); NEUTROPHILS # (AUTO) 6.12 x10^3/uL (1.8-6.8); NEUTROPHILS % (AUTO) 82 % (42-75); PLATELET COUNT 192 x10^3/uL (130-400); RED CELL DISTRIBUTION WIDTH 18.5 % (9.6-15.2)
[2017-12-20 05:30] LABS: ANION GAP 8 mmol/L (5-15); CALCIUM 7.3 mg/dL (8.5-10.1); CHLORIDE 105 mmol/L (98-107)
[2017-12-20 05:32] LABS: CREATININE 0.63 mg/dL (0.55-1.02)
[2017-12-20 07:15] VITALS: BP 133/76
[2017-12-20] MEDS: ALBUTEROL/IPRATROPIUM 2.5MG/0.5MG, 3 ML NPPB SCH ×4 (07:42→19:36)
[2017-12-20] MEDS: FLUTICASONE/VILANTEROL 200-25MCG/INH INH SCH (08:13)
[2017-12-20] MEDS: DILTIAZEM CD 180 MG CAP.ER.24H PO SCH (08:13)
[2017-12-20] MEDS: VENLAFAXINE 75 MG CAP ER PO SCH (08:13)
[2017-12-20] MEDS: BUSPIRONE 10 MG TABLET PO SCH (08:14)
[2017-12-20] MEDS: SUCRALFATE 1 GM/10 ML UDC PO SCH ×4 (08:14→20:17)
[2017-12-20] MEDS ORDERED: METHADONE 5 MG TABLET ONE (08:39)
[2017-12-20] MEDS ORDERED: METHADONE 10 MG TABLET ONE (08:40)
[2017-12-20] MEDS: BISACODYL 5 MG EC TABLET PO SCH (09:30)
[2017-12-20] MEDS: PANTOPROZOLE 40MG TABLET PO SCH ×2 (10:04→16:07)
[2017-12-20] MEDS: METHADONE INTENSOL 10 MG/ML ORAL CONC PO SCH (10:04)
[2017-12-20 12:18] VITALS: BP 93/59
[2017-12-20 19:31] VITALS: BP 101/63
[2017-12-20] MEDS: TRAZODONE 100MG TABLET PO SCH (20:17)
[2017-12-20] MEDS: CEFTRIAXONE PMX 2GM/50ML 50 ML IV SCH (21:24)
[2017-12-21] VITALS (7 sets, daily range): BP systolic 89–97; BP diastolic 55–63
[2017-12-21] MEDS: DOXYCYCLINE 100 MG in DEXTROSE 5% 250 ML IV SCH ×2 (03:57→16:33)
[2017-12-21] MEDS: OXYcodone IR 5MG TABLET PO PRN ×5 (04:21→21:10)
[2017-12-21 06:23] LABS: BASOPHILS % (AUTO) 0 % (0-1); EOSINOPHILS # (AUTO) 0.06 x10^3/uL (0-0.4); EOSINOPHILS % (AUTO) 1 % (1-7); LYMPHOCYTES # (AUTO) 0.65 x10^3/uL (1-3.4); LYMPHOCYTES % (AUTO) 10 % (22-44); MD NO; MEAN CORPUSCULAR HEMOGLOBIN 27.1 pg (27.0-34.8); MEAN CORPUSCULAR HGB CONC 32.3 g/dL (32.4-35.8); MEAN CORPUSCULAR VOLUME 83.8 fL (80-100); MEAN PLATELET VOLUME 8.9 fL (7.4-10.4); MONOCYTES # (AUTO) 0.54 x10^3/uL (0.2-0.8); MONOCYTES % (AUTO) 8 % (2-9); NEUTROPHILS # (AUTO) 5.27 x10^3/uL (1.8-6.8); NEUTROPHILS % (AUTO) 81 % (42-75); PLATELET COUNT 215 x10^3/uL (130-400); RED BLOOD COUNT 2.93 x10^6/uL (3.82-5.3); RED CELL DISTRIBUTION WIDTH 19.4 % (9.6-15.2)
[2017-12-21 06:35] LABS: ANION GAP 7 mmol/L (5-15); CALCIUM 7.4 mg/dL (8.5-10.1); CHLORIDE 104 mmol/L (98-107)
[2017-12-21] MEDS: POTASSIUM CHLORIDE 20 MEQ TAB.ER.PRT PO SCH ×2 (08:27→16:33)
[2017-12-21] MEDS: SUCRALFATE 1 GM/10 ML UDC PO SCH ×4 (08:27→21:10)
[2017-12-21] MEDS: VENLAFAXINE 75 MG CAP ER PO SCH (08:28)
[2017-12-21] MEDS: BUSPIRONE 10 MG TABLET PO SCH (08:29)
[2017-12-21] MEDS: PANTOPROZOLE 40MG TABLET PO SCH ×2 (08:29→16:33)
[2017-12-21] MEDS ORDERED: FLUCONAZOLE 200 MG TABLET PO SCH (09:00)
[2017-12-21] MEDS: FLUTICASONE/VILANTEROL 200-25MCG/INH INH SCH (09:37)
[2017-12-21] MEDS: BISACODYL 5 MG EC TABLET PO SCH (09:37)
[2017-12-21] MEDS: METHADONE INTENSOL 10 MG/ML ORAL CONC PO SCH (09:38)
[2017-12-21] MEDS: DILTIAZEM CD 180 MG CAP.ER.24H PO SCH (09:38)
[2017-12-21] MEDS: ALBUTEROL/IPRATROPIUM 2.5MG/0.5MG, 3 ML NPPB SCH (13:34)
[2017-12-21] MEDS: LACTULOSE 10 GM/15 ML UDC PO PRN (14:46)
[2017-12-21] MEDS: TRAZODONE 100MG TABLET PO SCH (21:10)
[2017-12-21] MEDS: CEFTRIAXONE PMX 2GM/50ML 50 ML IV SCH (23:01)
[2017-12-21] MEDS: LORazepam 1MG TABLET PO PRN (23:02)
[2017-12-22 02:00] VITALS: BP 94/59
[2017-12-22 02:01] VITALS: BP 91/58
[2017-12-22 02:02] VITALS: BP 80/56
[2017-12-22] MEDS: OXYcodone IR 5MG TABLET PO PRN ×4 (02:26→20:08)
[2017-12-22] MEDS: DOXYCYCLINE 100 MG in DEXTROSE 5% 250 ML IV SCH (05:15)
[2017-12-22] MEDS: LACTULOSE 10 GM/15 ML UDC PO PRN (05:28)
[2017-12-22 06:30] LABS: BASOPHILS # (AUTO) 0.02 x10^3/uL (0-0.1); BASOPHILS % (AUTO) 0 % (0-1); EOSINOPHILS % (AUTO) 2 % (1-7); LYMPHOCYTES # (AUTO) 0.86 x10^3/uL (1-3.4); LYMPHOCYTES % (AUTO) 14 % (22-44); MD NO; MEAN CORPUSCULAR HEMOGLOBIN 27.6 pg (27.0-34.8); MEAN CORPUSCULAR HGB CONC 32.6 g/dL (32.4-35.8); MEAN CORPUSCULAR VOLUME 84.4 fL (80-100); MEAN PLATELET VOLUME 8.5 fL (7.4-10.4); MONOCYTES # (AUTO) 0.56 x10^3/uL (0.2-0.8); MONOCYTES % (AUTO) 9 % (2-9); NEUTROPHILS # (AUTO) 4.57 x10^3/uL (1.8-6.8); NEUTROPHILS % (AUTO) 75 % (42-75); PLATELET COUNT 294 x10^3/uL (130-400); RED BLOOD COUNT 3.24 x10^6/uL (3.82-5.3); RED CELL DISTRIBUTION WIDTH 19.9 % (9.6-15.2)
[2017-12-22 06:45] LABS: CHLORIDE 104 mmol/L (98-107)
[2017-12-22 07:16] VITALS: BP 89/58
[2017-12-22 07:16] LABS: ALANINE AMINOTRANSFERASE 12 U/L (12-78); ALKALINE PHOSPHATASE 86 U/L (45-117); ANION GAP 9 mmol/L (5-15); BILIRUBIN,TOTAL 0.4 mg/dL (0.2-1.0); CALCIUM 7.9 mg/dL (8.5-10.1); CREATININE 0.58 mg/dL (0.55-1.02); TOTAL PROTEIN 5.9 g/dL (6.4-8.2)
[2017-12-22] MEDS: SUCRALFATE 1 GM/10 ML UDC PO SCH ×4 (08:39→20:08)
[2017-12-22] MEDS: PANTOPROZOLE 40MG TABLET PO SCH ×2 (08:39→17:27)
[2017-12-22] MEDS: VENLAFAXINE 75 MG CAP ER PO SCH (08:40)
[2017-12-22] MEDS: FLUCONAZOLE 100 MG TABLET PO SCH (08:40)
[2017-12-22] MEDS: FLUTICASONE/VILANTEROL 200-25MCG/INH INH SCH (08:40)
[2017-12-22] MEDS: BUSPIRONE 10 MG TABLET PO SCH (08:40)
[2017-12-22] MEDS: BISACODYL 5 MG EC TABLET PO SCH (08:41)
[2017-12-22] MEDS: DILTIAZEM CD 180 MG CAP.ER.24H PO SCH (09:00)
[2017-12-22 09:31] LABS: OCCULT BLOOD POSITIVE (NEGATIVE)
[2017-12-22] MEDS: METHADONE INTENSOL 10 MG/ML ORAL CONC PO SCH (11:06)
[2017-12-22] MEDS ORDERED: DILT120C11 PO (12:43)
[2017-12-22] MEDS: HYDROCORTISONE 100 MG INJ. IVPush SCH ×2 (14:37→20:08)
[2017-12-22 14:50] VITALS: BP 90/58
[2017-12-22 20:00] VITALS: BP 100/69
[2017-12-22] MEDS: TRAZODONE 100MG TABLET PO SCH (20:08)
[2017-12-23] MEDS: OXYcodone IR 5MG TABLET PO PRN ×6 (00:02→22:10)
[2017-12-23] MEDS: HYDROCORTISONE 100 MG INJ. IVPush SCH ×5 (01:48→19:46)
[2017-12-23] MEDS: LORazepam 1MG TABLET PO PRN ×3 (01:50→21:17)
[2017-12-23] MEDS: CEFTRIAXONE PMX 2GM/50ML 50 ML IV SCH (01:50)
[2017-12-23 02:00] VITALS: BP 127/85
[2017-12-23] MEDS: DOXYCYCLINE 100 MG in DEXTROSE 5% 250 ML IV SCH (02:42)
[2017-12-23 07:50] VITALS: BP 129/78
[2017-12-23] MEDS: DILTIAZEM 120 MG CAP.ER.12H PO SCH (09:00)
[2017-12-23] MEDS: BUSPIRONE 10 MG TABLET PO SCH (09:33)
[2017-12-23] MEDS: BISACODYL 5 MG EC TABLET PO SCH (09:33)
[2017-12-23] MEDS: VENLAFAXINE 75 MG CAP ER PO SCH (09:33)
[2017-12-23] MEDS: FLUCONAZOLE 100 MG TABLET PO SCH (09:33)
[2017-12-23] MEDS: PANTOPROZOLE 40MG TABLET PO SCH ×2 (09:33→16:12)
[2017-12-23] MEDS: FLUTICASONE/VILANTEROL 200-25MCG/INH INH SCH (09:34)
[2017-12-23] MEDS: SUCRALFATE 1 GM/10 ML UDC PO SCH ×4 (09:39→21:17)
[2017-12-23 09:41] LABS: BASOPHILS # (AUTO) 0.05 x10^3/uL (0-0.1); BASOPHILS % (AUTO) 1 % (0-1); EOSINOPHILS # (AUTO) 0.02 x10^3/uL (0-0.4); EOSINOPHILS % (AUTO) 0 % (1-7); LYMPHOCYTES % (AUTO) 11 % (22-44); MD NO; MEAN CORPUSCULAR HEMOGLOBIN 27.5 pg (27.0-34.8); MEAN CORPUSCULAR HGB CONC 32.9 g/dL (32.4-35.8); MEAN CORPUSCULAR VOLUME 83.7 fL (80-100); MEAN PLATELET VOLUME 8.1 fL (7.4-10.4); MONOCYTES # (AUTO) 0.24 x10^3/uL (0.2-0.8); MONOCYTES % (AUTO) 6 % (2-9); NEUTROPHILS # (AUTO) 3.63 x10^3/uL (1.8-6.8); NEUTROPHILS % (AUTO) 82 % (42-75); PLATELET COUNT 368 x10^3/uL (130-400); RED BLOOD COUNT 3.27 x10^6/uL (3.82-5.3); RED CELL DISTRIBUTION WIDTH 20.1 % (9.6-15.2)
[2017-12-23 09:48] LABS: ANION GAP 7 mmol/L (5-15); CALCIUM 8.4 mg/dL (8.5-10.1); CHLORIDE 105 mmol/L (98-107); CREATININE 0.47 mg/dL (0.55-1.02)
[2017-12-23] MEDS: METHADONE INTENSOL 10 MG/ML ORAL CONC PO SCH (10:03)
[2017-12-23] MEDS: ALBUTEROL/IPRATROPIUM 2.5MG/0.5MG, 3 ML NEB PRN (10:16)
[2017-12-23] MEDS ORDERED: DOXYCYCLINE 100 MG in DEXTROSE 5% 250 ML IV SCH (16:00)
[2017-12-23 19:39] VITALS: BP 114/76
[2017-12-23] MEDS: TRAZODONE 100MG TABLET PO SCH (21:17)
[2017-12-24 00:18] VITALS: BP_SYST 116; BP_SYST 121; BP_DIAS 75; BP_DIAS 80
[2017-12-24] MEDS: HYDROCORTISONE 100 MG INJ. IVPush SCH ×4 (02:25→21:08)
[2017-12-24] MEDS: OXYcodone IR 5MG TABLET PO PRN ×6 (02:25→23:40)
[2017-12-24 07:41] VITALS: BP 139/90
[2017-12-24] MEDS: DILTIAZEM 120 MG CAP.ER.12H PO SCH (09:00)
[2017-12-24] MEDS: BISACODYL 5 MG EC TABLET PO SCH (09:00)
[2017-12-24] MEDS: FLUTICASONE/VILANTEROL 200-25MCG/INH INH SCH (09:00)
[2017-12-24] MEDS: METHADONE INTENSOL 10 MG/ML ORAL CONC PO SCH (09:22)
[2017-12-24] MEDS: SUCRALFATE 1 GM/10 ML UDC PO SCH ×4 (09:23→21:08)
[2017-12-24] MEDS: BUSPIRONE 10 MG TABLET PO SCH (09:24)
[2017-12-24] MEDS: VENLAFAXINE 75 MG CAP ER PO SCH (09:24)
[2017-12-24] MEDS: PANTOPROZOLE 40MG TABLET PO SCH ×2 (09:25→17:22)
[2017-12-24] MEDS: FLUCONAZOLE 100 MG TABLET PO SCH (09:25)
[2017-12-24] MEDS: ALBUTEROL/IPRATROPIUM 2.5MG/0.5MG, 3 ML NEB PRN (11:53)
[2017-12-24 12:57] VITALS: BP 133/83
[2017-12-24] MEDS: LORazepam 1MG TABLET PO PRN ×2 (14:43→22:08)
[2017-12-24] MEDS ORDERED: CEFTRIAXONE PMX 2GM/50ML 50 ML IV SCH (15:00)
[2017-12-24 18:42] VITALS: BP 123/83
[2017-12-24] MEDS: TRAZODONE 100MG TABLET PO SCH (21:09)
[2017-12-25 01:09] VITALS: BP 133/88
[2017-12-25] MEDS: HYDROCORTISONE 100 MG INJ. IVPush SCH ×3 (03:20→13:05)
[2017-12-25] MEDS: OXYcodone IR 5MG TABLET PO PRN ×3 (03:52→13:06)
[2017-12-25] MEDS: ALBUTEROL/IPRATROPIUM 2.5MG/0.5MG, 3 ML NEB PRN (04:26)
[2017-12-25] MEDS: SUCRALFATE 1 GM/10 ML UDC PO SCH ×2 (07:00→13:06)
[2017-12-25 08:00] VITALS: BP 126/74
[2017-12-25] MEDS: BUSPIRONE 10 MG TABLET PO SCH (08:13)
[2017-12-25] MEDS: VENLAFAXINE 75 MG CAP ER PO SCH (08:13)
[2017-12-25] MEDS: FLUTICASONE/VILANTEROL 200-25MCG/INH INH SCH (08:13)
[2017-12-25] MEDS: PANTOPROZOLE 40MG TABLET PO SCH (08:14)
[2017-12-25] MEDS: FLUCONAZOLE 100 MG TABLET PO SCH (08:14)
[2017-12-25] MEDS: DILTIAZEM 120 MG CAP.ER.12H PO SCH (08:14)
[2017-12-25] MEDS: BISACODYL 5 MG EC TABLET PO SCH (08:18)
[2017-12-25] MEDS: METHADONE INTENSOL 10 MG/ML ORAL CONC PO SCH (09:13)
[2017-12-25] MEDS ORDERED: PRED10TA PO (11:22)
[2017-12-25] MEDS ORDERED: PANT40TA5 PO (11:22)
[2017-12-25] MEDS ORDERED: SUCR1ORA5 PO (11:22)
[2017-12-25] MEDS ORDERED: FLUC100T PO (11:22)
== END 2017-12-25 13:50 | disposition home health service (06) | DRG 492 ==
LOC: ED 18:48 → EDIP 19:54 → 4EST 21:11
PROVIDERS: ADMIT Internal Medicine; ATTEND Internal Medicine
PROC: 30233N1 Transfusion of Nonautologous Red Blood Cells into Peripheral Vein, Percutaneous Approach (ICD-10-PCS; principal; 2017-12-16)
PROC: 0QSJ04Z Reposition Right Fibula with Internal Fixation Device, Open Approach (ICD-10-PCS; 2017-12-18)
PROC: 0QPJ04Z Removal of Internal Fixation Device from Right Fibula, Open Approach (ICD-10-PCS; 2017-12-18)
PROC: 0QSL04Z Reposition Right Tarsal with Internal Fixation Device, Open Approach (ICD-10-PCS; 2017-12-18)
PROC: 0DB58ZX Excision of Esophagus, Via Natural or Artificial Opening Endoscopic, Diagnostic (ICD-10-PCS; 2017-12-19)
DX: S82.301A Unspecified fracture of lower end of right tibia, initial encounter for closed fracture (principal); E43 Unspecified severe protein-calorie malnutrition; J18.9 Pneumonia, unspecified organism; J96.10 Chronic respiratory failure, unspecified whether with hypoxia or hypercapnia; B37.81 Candidal esophagitis; D68.69 Other thrombophilia; I42.9 Cardiomyopathy, unspecified; E27.40 Unspecified adrenocortical insufficiency; F11.20 Opioid dependence, uncomplicated; J44.0 Chronic obstructive pulmonary disease with (acute) lower respiratory infection; N39.0 Urinary tract infection, site not specified; S82.831A Other fracture of upper and lower end of right fibula, initial encounter for closed fracture; I11.0 Hypertensive heart disease with heart failure; I50.9 Heart failure, unspecified; G25.3 Myoclonus; D50.9 Iron deficiency anemia, unspecified; F10.21 Alcohol dependence, in remission; B96.1 Klebsiella pneumoniae [K. pneumoniae] as the cause of diseases classified elsewhere; E87.6 Hypokalemia; F32.9 Major depressive disorder, single episode, unspecified; G89.29 Other chronic pain; I48.0 Paroxysmal atrial fibrillation; K21.0 Gastro-esophageal reflux disease with esophagitis; K44.9 Diaphragmatic hernia without obstruction or gangrene; R29.6 Repeated falls; T38.0X5A Adverse effect of glucocorticoids and synthetic analogues, initial encounter; W19.XXXA Unspecified fall, initial encounter; Z79.52 Long term (current) use of systemic steroids; Z79.82 Long term (current) use of aspirin; Z80.0 Family history of malignant neoplasm of digestive organs; Z83.3 Family history of diabetes mellitus; Z87.891 Personal history of nicotine dependence; Z99.81 Dependence on supplemental oxygen
CPT/HCPCS: 27788; 27825; 29515; 36415; 36430; 71045; 76001; 80048; 80053; 80061; 80074; 81001; 82040; 82272; 82533; 82728; 83036; 83540; 83550; 83735; 84439; 84443; 84484; 85014; 85018; 85025; 86361; 86850; 86900; 86923; 87040; 87070; 87077; 87086; 87186; 87205; 87521; 87806; 88305; 88312; 93005; 93306; 93880; 94640; 96361; 96365; 96375; 96376; 99152; C1713; J0171; J0690; J0696; J1100; J1170; J1750; J2250; J2405; J2704; J3010; J3480; J3490; J7060; J7620; J7644; C9113; G0475; J0330; J1720; J2270; J7030; J7040; J7512; P9016